=== PATIENT | male | born 1940 | race Caucasian/White ===

== ENCOUNTER 2021-02-17 14:42 | Outpatient (CLI) | payer MEDICARE, SELFPAY ==
--- NOTE | 2021-02-17 15:08 | XR_ITS ---
WS: [id number] LEFT HAND: 3 VIEW(S) TECHNIQUE: PA, oblique and lateral. HISTORY: SWELLING OF LEFT HAND COMPARISON: None available. No acute fracture or dislocation. Moderate diffuse interphalangeal joint space narrowing. There is advanced degenerative changes involv ing the carpal rows and joint spaces. Slight proximal migration of the capitate. There is no widening on this radiographic Evaluation between the scapholunate. 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 More advanced first and s econd carpal metacarpal joint space arthritis. Osteophytes and joint space narrowing most significant involving the first metacarpal. Very tiny erosions involving the distal scaphoid and the trapezium. Mild soft tissue edema surrounding the dorsal hand. XR/XR hand LT min 3V* [id number] IMPRESSION: 1. 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 2. 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 3. Tiny erosions involving the distal scaphoid and trapezium.
== END 2021-02-17 14:43 | disposition home or self-care (01) ==
PROVIDERS: Visit Provider Registered Nurse
DX: M79.89 Other specified soft tissue disorders (principal)
CPT/HCPCS: 73130